=== PATIENT | female | born 1975 | race Caucasian/White ===

== ENCOUNTER → 2019-08-03 08:26 | Outpatient (CLI) | payer BC ==
[2019-08-03 09:15] LABS: ALBUMIN 3.6 g/dL (3.4-5.0); BILIRUBIN - DIRECT 0.08 mg/dL (0.00-0.30); BILIRUBIN - INDIRECT 0.23 mg/dL (0.00-1.00); BILIRUBIN - TOTAL 0.31 mg/dL (0.2-1.3); PROTEIN - SERUM 7.4 g/dL (6.4-8.2)
== END | disposition home or self-care (01) ==
LOC: D.LAB 08:26 → D.NM 08-04 09:00
PROVIDERS: ATTEND Internal Medicine Gastroenterology
DX: R10.9 Unspecified abdominal pain (principal); R19.7 Diarrhea, unspecified; R14.0 Abdominal distension (gaseous)